=== PATIENT | male | born 1955 | race Hispanic/Latino ===

== ENCOUNTER 2020-03-05 07:57 | Day surgery (SDC) | payer BC ==
[2020-03-05] MEDS ORDERED: LACTATED RINGERS 1,000 ML ONE (08:24)
[2020-03-05] MEDS ORDERED: ONDANSETRON 4 MG/2 ML INJ IV PRN (09:03)
[2020-03-05] MEDS ORDERED: HYDROmorphone 1 MG/1 ML INJ IV PRN (09:03)
--- NOTE | 2020-03-05 09:04 | Anesthesia Day of Surgery ---
Anesthesia Day of Surgery - Day of Surgery Patient Examined: Yes Patient H&P Reviewed: Yes Patient is NPO: Yes
--- NOTE | 2020-03-05 09:05 | Anesthesia Consultation ---
Anesthesia Consult and Med Hx Date of service: 03/05/20 - Airway Anesthetic Teeth Evaluation: Good, Partials ROM Head & Neck: Adequate (S/P ACDF) Mental/Hyoid Distance: Adequate Mallampati Class: Class II Intubation Access Assessment: Probably Good - Pre-Operative Health Status ASA Pre-Surgery Classification: ASA3 Proposed Anesthetic Plan: General - Pulmonary Hx Smoking: No (+2FS) - Cardiovascular System Hx Hypertension: No - Gastrointestinal Hx Ulcer: No Hx Gastroesophageal Reflux Disease: No - Endocrine Hx Liver Disease: Yes (Liver tx 2016; states he's doing well) - Other Systems Hx Cancer: No Hx Obesity: No
[2020-03-05] MEDS ORDERED: propofoL 200 MG/20 ML VIAL IV ONE (09:10)
[2020-03-05] MEDS ORDERED: LIDOCAINE MPF (2%) 20 MG/1 ML VIAL 5 ML ONE (09:10)
[2020-03-05] MEDS ORDERED: fentaNYL 100 MCG/2 ML INJ ONE (09:10)
[2020-03-05] MEDS ORDERED: ceFAZolin/STERILE WATER 2 GM/20 ML SYRINGE IV NR (09:45)
[2020-03-05] MEDS ORDERED: LACTATED RINGERS 1,000 ML IV SCH (10:00)
[2020-03-05] MEDS ORDERED: ePHEDrine SULFATE 50 MG/1 ML INJ ONE (10:18)
[2020-03-05] MEDS ORDERED: EPINEPHrine 1 MG/10 ML SYRINGE ONE (10:18)
[2020-03-05] MEDS ORDERED: ONDANSETRON 4 MG/2 ML INJ ONE (10:46)
[2020-03-05] MEDS ORDERED: WATER FOR IRRIG STERILE 2000 ML IR ONE (11:41)
--- NOTE | 2020-03-05 11:42 | Short Stay Summary ---
Short Stay Documentation Date of service: 03/05/20 - History H&P: obtained from office - Allergies and Medications Current Medications: Allergies No Known Allergies Allergy (Unverified 06/16/14 14:57) Home Medications Medication Instructions Recorded Confirmed Last Taken Type Ergocalciferol [Vitamin D2] 1 cap PO 1XW 06/16/14 06/22/14 06/19/14 09:00 History Ezetimibe [Zetia] 10 mg PO QDAY 06/16/14 06/22/14 06/21/14 09:00 History Lipase/Protease/Amylase [Creon Dr 2 cap PO QDAY 06/16/14 06/22/14 06/21/14 18:00 History 12,000 Units] metroNIDAZOLE [Metronidazole] 500 mg PO TID 06/16/14 06/16/14 Unknown History oxyCODONE /ACETAMINOPHEN [Percocet 2 tab PO Q6H PRN #30 tablet 06/23/14 Unknown Rx 5/325 mg] Active Medications Cefazolin Sodium (Ancef/Sterile Water 2 Gm/20 Ml) 2 gm IV PREOP NR Stop: 03/05/20 23:00 Fentanyl (Sublimaze) 50 mcg IV Q5MIN PRN PRN Reason: Pain , Severe (7-10) Stop: 03/05/20 23:00 Hydromorphone HCl (Dilaudid) 0.25 mg IV Q10MIN PRN PRN Reason: Pain, Moderate (4-6) Stop: 03/05/20 23:00 Lactated Ringer's (Lactated Ringers) 1,000 mls @ 100 mls/hr IV DIRECT ACACIA Last Admin: 03/05/20 09:10 Dose: 100 mls/hr Documented by: Ondansetron HCl (Zofran) 4 mg IV ONCE PRN PRN Reason: Nausea And Vomiting Stop: 03/05/20 20:00 - Brief post op/procedure progress note Date of procedure: 03/05/20 Pre-op diagnosis: left ureteral stone, left renal stone Post-op diagnosis: same Procedure: cysto, left rpg, left ureteroscopy, laser, stent with short internal string (26cm) Anesthesia: GETA Surgeon: BRADLEY CHAIREZ Estimated blood loss: minimal Pathology: none Condition: stable - Hospital course Hospital course: norco,bactrim, post op info on chart - Disposition Condition at discharge: Stable Disposition: DC-01 TO HOME OR SELFCARE Short Stay Discharge Plan Follow up with: CASEY OLVERA MD [Primary Care Provider] - 7 Days
[2020-03-05] MEDS: fentaNYL 100 MCG/2 ML INJ IV PRN ×2 (11:52→12:10)
--- NOTE | 2020-03-05 12:15 | Post Anesthesia Evaluation ---
- Post Anesthesia Evaluation Patient Participated: Yes Airway Patent: Yes Stable Respiratory Function: Yes Nausea/Vomiting: No Temp > 96.8F: Yes Pain Manageable: Yes Adequeate Hydration: Yes Anesthesia Complications: No Block Receding Appropriately: Not Applicable Patient on Ventilator: No
[2020-03-05] MEDS ORDERED: HYDROcodone/ACETAMINOPHEN 5-325 MG TAB PO PRN (12:28)
--- NOTE | 2020-03-05 14:11 | Operative Report ---
PREOPERATIVE DIAGNOSES: Left ureteral stone, left renal stone, sepsis, status post stent placement. POSTOPERATIVE DIAGNOSES: Left ureteral stone, left renal stone, sepsis, status post stent placement, also impacted left ureteral stone. PROCEDURES: Cystoscopy, left retrograde pyelogram, holmium laser lithotripsy, basket stone extraction, double-J stent exchange, pyelograms. Staged procedure. SURGEON: Waqar Pal MD ANESTHESIA: General. ESTIMATED BLOOD LOSS: Minimal. FLUIDS: Crystalloid. COMPLICATIONS: No complications. INDICATIONS: This patient is a 64-year-old gentleman known to our service for kidney stone and prostate cancer, under surveillance therapy. The patient had a CT of the abdomen and pelvis in July, passed a right stone has a 7 mm stone on the left side, was admitted and treated at [facility] for sepsis, now has a stent placement. Finished his antibiotics. He has been asymptomatic. He presents for definitive therapy. Risks, benefits, and complications were explained. DESCRIPTION OF PROCEDURE: The patient was taken to the operative suite, placed in a supine position. After adequate general anesthesia, placed in a dorsal lithotomy position, prepped and draped in a sterile fashion. Pancystourethroscopy was performed with 22-Welsh Storz cystoscope, no urethral or prostate abnormalities. His prostate displayed some mild trilobar obstruction. Bladder, no tumors or stones were noted, obvious stent in the left ureter. On communicable disease specialist film, we could now see that the patient has two stones previously, they were both in the kidney, now one in the ureter, proximal ureter, and they were both appear to be ____ mm in diameter. Two 0.035 Glidewire were placed. The stent was removed. Rigid ureteroscopy was performed. ____ it is difficult to get the scope up to the stone, used a 3-Welsh Nishi basket, it was at L2, pulled it down to L3. This disassembled the basket, put the scope back up alongside the basket and holmium laser lithotripsy of this stone using a 200 micron fiber at 10 gomez, essentially broken into 2 fragments. Multiple attempts to fragment it more, was able to chip pieces of it away. I then used another basket to extract both fragments. There was significant edema around the stone, but I was able to clear out all the fragments. A 6-Welsh 26 cm double-J stent with a short internal string was left indwelling. The patient will need a lithotripsy of the left renal stone. Rectal exam was benign. He was extubated and taken to recovery room in stable condition ____. JOB# [id number] ALICEC/NTS
[2020-03-05 14:36] VITALS: BP 139/90
--- NOTE | 2020-03-05 15:39 | Fluoroscopy Report ---
INTRAOPERATIVE FLUOROSCOPY INDICATION / CLINICAL INFORMATION: LT URETERAL STONE. TECHNIQUE: Intraoperative spot images were obtained during the procedure. FINDINGS: Intraoperative fluoroscopy images for retrograde urethrogram. See operative/procedure note by performing physician for full details. Fluoroscopy Time: 1 minute and 23 seconds. Fluoroscopy Images: 7. Signer Name: Luis Felipe Contreras MD Signed: 03/05/2020 3:34 PM Workstation Name: [id number]
== END 2020-03-05 13:15 | disposition home or self-care (01) ==
LOC: OR 07:57
PROVIDERS: ATTEND Urology
DX: N20.2 Calculus of kidney with calculus of ureter (principal); A41.89 Other specified sepsis; E78.00 Pure hypercholesterolemia, unspecified; Z98.890 Other specified postprocedural states; Z79.899 Other long term (current) drug therapy
CPT/HCPCS: 52356; 74420; A4217; C1758; C1769; C2617; J0690; J2405; J2704; J3010; J7120; Q9967; J0171

== ENCOUNTER 2020-03-15 10:23 | Day surgery (SDC) | payer BC ==
[~2020-03-15 10:23] MED LIST: LACTATED RINGERS 1,000 ML IV SCH; MIDAZOLAM 2 MG/2 ML INJ IV NR; ceFAZolin/STERILE WATER 2 GM/20 ML SYRINGE IV NR
--- NOTE | 2020-03-15 11:14 | Anesthesia Consultation ---
Anesthesia Consult and Med Hx Date of service: 03/15/20 - Airway Anesthetic Teeth Evaluation: Good ROM Head & Neck: Adequate (hx ACDF) Mental/Hyoid Distance: Adequate Mallampati Class: Class III Intubation Access Assessment: Possibly Difficult (previous easy LMA 4) - Pulmonary Exam CTA: Yes - Cardiac Exam Cardiac Exam: RRR - Pre-Operative Health Status ASA Pre-Surgery Classification: ASA3 Proposed Anesthetic Plan: General - Pulmonary Hx Smoking: No Hx Respiratory Symptoms: No Hx Sleep Apnea: No (MARTITA PRE SCREEN LOW RISK) - Cardiovascular System Hx Hypertension: No Hx Heart Attack/AMI: No Hx Percutaneous Transluminal Coronary Angioplasty (PTCA): No Hx Cardia Arrhythmia: No - Central Nervous System CVA: No - Endocrine Hx Renal Disease: No Hx Liver Disease: Yes (hx liver transplant 2016; graft functional well per patient) Hx Insulin Dependent Diabetes: No Hx Non-Insulin Dependent Diabetes: No Hx Thyroid Disease: No - Other Systems Hx Cancer: Yes (hx prostate ca) Hx Obesity: No
--- NOTE | 2020-03-15 11:14 | Anesthesia Day of Surgery ---
Anesthesia Day of Surgery - Day of Surgery Patient Examined: Yes Patient H&P Reviewed: Yes Patient is NPO: Yes
[2020-03-15] MEDS ORDERED: fentaNYL 100 MCG/2 ML INJ IV PRN (11:15)
[2020-03-15] MEDS ORDERED: HYDROcodone/ACETAMINOPHEN 5-325 MG TAB PO PRN (11:30)
[2020-03-15] MEDS ORDERED: HYDROmorphone 1 MG/1 ML INJ ONE (12:15)
[2020-03-15] MEDS ORDERED: propofoL 200 MG/20 ML VIAL IV ONE (12:16)
[2020-03-15] MEDS ORDERED: LIDOCAINE MPF (2%) 20 MG/1 ML VIAL 5 ML ONE (12:17)
[2020-03-15] MEDS ORDERED: WATER FOR IRRIG STERILE 2000 ML IR ONE (13:18)
[2020-03-15] MEDS ORDERED: ONDANSETRON 4 MG/2 ML INJ ONE (13:23)
--- NOTE | 2020-03-15 13:27 | Short Stay Summary ---
Short Stay Documentation Date of service: 03/15/20 - History H&P: obtained from office - Allergies and Medications Current Medications: Allergies No Known Allergies Allergy (Verified 03/12/20 17:02) Home Medications Medication Instructions Recorded Confirmed Last Taken Type Ergocalciferol [Vitamin D2] 50,000 unit PO 1XW 06/16/14 03/13/20 06/19/14 09:00 History Ezetimibe [Zetia] 10 mg PO QDAY 06/16/14 03/13/20 06/21/14 09:00 History Lipase/Protease/Amylase [Creon Dr 2 cap PO QDAY 06/16/14 03/13/20 06/21/14 18:00 History 12,000 Units] Mesalamine 1.2 gm PO QID 03/13/20 03/13/20 Unknown History Tacrolimus [Prograf] 3 mg PO BID 03/13/20 03/13/20 Unknown History Tamsulosin [Flomax] 0.4 mg PO QDAY 03/13/20 03/13/20 Unknown History Ursodiol [Michele Forte] 500 mg PO BID 03/13/20 03/13/20 Unknown History oxyCODONE /ACETAMINOPHEN [Percocet 2 tab PO Q6H PRN 03/13/20 03/13/20 Unknown History 5/325 mg] Active Medications Hydrocodone Bitart/Acetaminophen ([place] 5/325) 2 each PO ONCE PRN PRN Reason: Pain, Moderate (4-6) Stop: 03/15/20 20:00 Cefazolin Sodium (Ancef/Sterile Water 2 Gm/20 Ml) 2 gm IV PREOP NR Stop: 03/15/20 23:59 Fentanyl (Sublimaze) 50 mcg IV Q5MIN PRN PRN Reason: Pain , Severe (7-10) Stop: 03/15/20 23:00 Lactated Ringer's (Lactated Ringers) 1,000 mls @ 100 mls/hr IV DIRECT ACACIA Stop: 03/15/20 23:59 Last Admin: 03/15/20 11:40 Dose: 100 mls/hr Documented by: Midazolam HCl (Versed) 2 mg IV PREOP NR Stop: 03/15/20 22:00 Last Admin: 03/15/20 11:51 Dose: 2 mg Documented by: - Brief post op/procedure progress note Date of procedure: 03/15/20 Pre-op diagnosis: left renal stone Post-op diagnosis: same Procedure: ESWL cysto left stent removal Anesthesia: GETA Surgeon: BRADLEY CHAIREZ Estimated blood loss: none Condition: stable - Hospital course Hospital course: ultram, norco, flomax, post op info on chart - Disposition Condition at discharge: Stable Disposition: DC-01 TO HOME OR SELFCARE Short Stay Discharge Plan Follow up with: CASEY OLVERA MD [Primary Care Provider] - 7 Days
[2020-03-15] MEDS ORDERED: MEPERIDINE 25 MG/1 ML INJ IV PRN (13:35)
--- NOTE | 2020-03-15 13:41 | Operative Report ---
PREOPERATIVE DIAGNOSIS: Left renal stone, status post stent placement. POSTOPERATIVE DIAGNOSIS: Left renal stone, status post stent placement. PROCEDURES: Left extracorporeal shock wave lithotripsy, cystoscopy, stent removal. SURGEON: Waqar Pal MD. ANESTHESIA: General. ESTIMATED BLOOD LOSS: Minimal. FLUIDS: Crystalloid. COMPLICATIONS: No complications. INDICATIONS: This patient is a 64-year-old gentleman with several left renal stones; 1 dropped into the ureter, required emergent surgery and stent placement. He presents now for lithotripsy and possible stent removal. DESCRIPTION OF PROCEDURE: The patient was taken to the operative suite, placed in a supine position. After adequate general anesthesia, his stone was localized in 2 planes using fluoroscopy. Extracorporeal shock wave lithotripsy was administered with maximum kV of 7 and 2500 shocks; 5-minute renal pause after 200 shocks was performed. Adequate fragmentation could be appreciated. Cystoscopy, stent was removed and he was in a supine position. He tolerated the procedure well and was extubated and taken to the recovery room. He will go home on Flomax, Ultram and [place]. JOB# [id number] C/NTS
[2020-03-15 14:23] VITALS: BP 116/77
--- NOTE | 2020-03-15 15:12 | Post Anesthesia Evaluation ---
- Post Anesthesia Evaluation Patient Participated: Yes Airway Patent: Yes Stable Respiratory Function: Yes Nausea/Vomiting: No Temp > 96.8F: Yes Pain Manageable: Yes Adequeate Hydration: Yes Anesthesia Complications: No
== END 2020-03-15 15:00 | disposition home or self-care (01) ==
LOC: OR 10:23
PROVIDERS: ATTEND Urology
DX: N20.0 Calculus of kidney (principal); E78.00 Pure hypercholesterolemia, unspecified; Z98.890 Other specified postprocedural states; Z79.899 Other long term (current) drug therapy; Z85.46 Personal history of malignant neoplasm of prostate; Z94.4 Liver transplant status
CPT/HCPCS: 50590; 52310; A4217; C1758; J0690; J1170; J2175; J2250; J2405; J2704; J7120